=== PATIENT | female | born 2000 | race American Indian/Alaskan Native ===

== ENCOUNTER 2021-03-11 01:14 | Emergency (ER) | payer SELFPAY ==
[2021-03-11] MEDS ORDERED: ZIPRASIDONE MESYLATE 20 MG VIAL IM ONE ×2 (01:20→01:27)
[2021-03-11] MEDS ORDERED: LORazepam 2 MG/ML VIAL IM ONE (01:20)
[2021-03-11] MEDS ORDERED: LORazepam 2 MG/ML VIAL ONE (01:27)
--- NOTE | 2021-03-11 02:30 | Emergency Department Report ---
<ANSON COLE - Last Filed: 03/12/21 12:33> ED Psych HPI - General Chief Complaint: Psych Stated Complaint: MH Time Seen by Provider: 03/11/21 01:44 - Related Data Previous Rx's Medication Instructions Recorded Last Taken Type diphenhydrAMINE [Benadryl CAP] 25 mg PO Q8HR PRN #21 capsule 06/29/20 Unknown Rx Quetiapine Fumarate [SEROquel] 50 mg PO BID #60 tab 03/12/21 Unknown Rx traZODone [Desyrel] 50 mg PO QHS #30 tab 03/12/21 Unknown Rx Allergies Allergy/AdvReac Type Severity Reaction Status Date / Time No Known Allergies Allergy Verified 06/29/20 02:26 ED Past Medical Hx - Medications Home Medications: Home Medications Medication Instructions Recorded Confirmed Last Taken Type diphenhydrAMINE [Benadryl CAP] 25 mg PO Q8HR PRN #21 capsule 06/29/20 Unknown Rx Quetiapine Fumarate [SEROquel] 50 mg PO BID #60 tab 03/12/21 Unknown Rx traZODone [Desyrel] 50 mg PO QHS #30 tab 03/12/21 Unknown Rx ED Medical Decision Making - Lab Data Result diagrams: 03/11/21 03:55 03/11/21 03:55 - Medical Decision Making I was approached by the nurse for discharge after she was seen and cleared by the psychiatric nurse practitioner. The patient appears awake, oriented, calm and appropriate. At this point she appears to have a normal decision-making capacity. She has been set up with outpatient referrals/resources and has been given prescriptions for her psychiatric medications. Critical Care Time: No ED Disposition Clinical Impression: Acute psychosis Disposition: DC-01 TO HOME OR SELFCARE Is pt being admited?: No Condition: Stable Additional Instructions: Please follow-up with your psychiatrist or any of the outpatient referrals given to you by the psychiatric team. Take all medications as prescribed. Return to the emergency department with any worsening of your symptoms, thoughts of norton rming yourself or others, or with any acute distress. Prescriptions: traZODone [Desyrel] 50 mg PO QHS #30 tab Quetiapine Fumarate [SEROquel] 50 mg PO BID #60 tab Referrals: JEREMY BLANCHARD MD [Primary Care Provider] - 3-5 Days <CHRISTOPHER MENDEZ - Last Filed: 03/13/21 04:51> ED Psych HPI - General Source: family Mode of arrival: Ambulatory - History of Present Illness Initial Comments: 20-year-old female, history of schizophrenia, presents ED for mental health evaluation. Family reports patient has exhibiting bizarre behavior. She has not been taking her medications. Patient was found walking in the middle of the street by secretary of police. She was subsequently brought to the ED. Officer called patient's family who met patient in the parking lot of the ED. Family reports that patient has been back and forth between [place] and [place]. Patient is not taking her psychiatric medications. Patient is uncooperative, not answering any questions, yelling and screaming loudly. -: unknown Quality: constant Improves With: medication Context: not taking psychiatric Treatments Prior to Arrival: none ED Review of Systems ROS: Stated complaint: MH Other details as noted in HPI Comment: Unobtainable due to pts medical conditions Psychiatric: other (Exhibiting bizarre behavior) ED Past Medical Hx - Past Medical History Previous Medical History?: Yes Hx Psychiatric Treatment: Yes (schizophrenia) Additional medical history: high choles - Surgical History Past Surgical History?: No - Social History Smoking Status: Never Smoker Substance Use Type: Alcohol ED Physical Exam - General Limitations: Altered Mental Status General appearance: alert, in no apparent distress - Head Head exam: Present: atraumatic, normocephalic - Eye Eye exam: Present: normal appearance, EOMI - ENT ENT exam: Present: mucous membranes moist - Neck Neck exam: Present: normal inspection - Respiratory Respiratory exam: Absent: respiratory distress - Cardiovascular Cardiovascular Exam: Present: normal rhythm, tachycardia - GI/Abdominal GI/Abdominal exam: Absent: distended - Extremities Exam Extremities exam: Present: normal inspection - Neurological Exam Neurological exam: Present: alert - Psychiatric Psychiatric exam: Present: agitated, manic, other (patient screaming out, "In the name of Jac!") - Skin Skin exam: Present: warm, dry, intact, normal color ED Course Vital Signs 03/11/21 03/11/21 03/11/21 02:00 03:30 20:14 Temperature 98.0 F 97.9 F Pulse Rate 91 H 107 H Respiratory 18 18 16 Rate Blood Pressure 133/88 Blood Pressure 146/89 [Left] O2 Sat by Pulse 100 100 99 Oximetry 03/11/21 03/12/21 22:30 10:28 Temperature 98.1 F Pulse Rate 79 Respiratory 16 18 Rate Blood Pressure Blood Pressure 120/83 [Left] O2 Sat by Pulse 99 98 Oximetry ED Medical Decision Making - Lab Data Result diagrams: 03/11/21 03:55 03/11/21 03:55 - Medical Decision Making 20-year-old female, history of schizophrenia, presents ED for mental health evaluation. Family reports patient has exhibiting bizarre behavior. She has not been taking her medications. Patient initially presented, she was uncooperative, not answering any questions, yelling, screaming, and praying loudly. Patient required chemical restraint. Vital signs are stable. Labs show very mild acidosis, remainder is normal. We are currently awaiting for urinalysis and drug screen, however, patient is medically clear for mental health evaluation. She has been placed on a 1013. Will dispo per psych. Critical care attestation.: If time is entered above; I have spent that time in minutes in the direct care of this critically ill patient, excluding procedure time. ED Disposition Is pt being admited?: No
[2021-03-11 04:07] LABS: Basophils % (Auto) 0.2 % (0.0-1.8); Hematocrit 40.1 % (30.3-42.9); Hemoglobin 13.2 gm/dl (10.1-14.3); Lymphocytes # (Auto) 1.4 K/mm3 (1.2-5.4); Lymphocytes % (Auto) 18.3 % (13.4-35.0); Mean Corpuscular HGB Conc 33 % (30-34); Mean Corpuscular Volume 87 fl (79-97); Monocytes # (Auto) 0.7 K/mm3 (0.0-0.8); Monocytes % (Auto) 9.6 % (0.0-7.3); Platelet Count 304 K/mm3 (140-440); Red Blood Count 4.63 M/mm3 (3.65-5.03); Red Cell Distribution Width 14.9 % (13.2-15.2)
[2021-03-11 04:27] LABS: BUN/Creatinine Ratio 14; Blood Urea Nitrogen 17 mg/dL (7-17); Hemolysis Index 9
[2021-03-11] MEDS ORDERED: MAGNESIUM HYDROXIDE (MOM) ORAL LIQD UDC PO PRN (06:39)
[2021-03-11] MEDS ORDERED: ZIPRASIDONE MESYLATE 20 MG VIAL IM PRN (06:39)
[2021-03-11] MEDS ORDERED: ALUM-MAG HYDROXIDE-SIMETHICONE 200-200-20MG/5ML ORAL LIQD 30 ML PO PRN (06:39)
[2021-03-11] MEDS ORDERED: ACETAMINOPHEN 325 MG TAB PO PRN (06:39)
--- NOTE | 2021-03-11 09:30 | Consultation ---
History of Present Illness - Reason for Consult Consult date: 03/11/21 Reason for consult: psychosis - History of Present Psychiatric Illness Per ED Note: 20-year-old female, history of schizophrenia, presents ED for mental health evaluation. Family reports patient has exhibiting bizarre behavior. She has not been taking her medications. Patient was found walking in the middle of the street by police sergeant precinct. She was subsequently brought to the ED. Officer called patient's family who met patient in the parking lot of the ED. Family reports that patient has been back and forth between [place] and [place]. Patient is not taking her psychiatric medications. Patient is uncooperative, not answering any questions, yelling and screaming loudly. Per Nurse Note: Pt brought into ED by PD. Pt was found wandering in the road and family attempted to bring to ED. In parking lot, pt was yelling and becoming aggressive with family. Pt yelling about Jac, God, and demons. Pt combative with staff and PD. MD aware. Verbal orders given for sedation. Will continue to monitor. I attempted to interview 20y/o Odette Wasserman. She is standing in the barba at the door of the room, as I ask her name and if I could speak with her. The patient is irritable. She is uncooperative and paranoid. She says "where am I. I don't think you work here." The patient says "go on black woman and go back on that end." As I'm leaving her, she is following me in the room to talk with another patient. She is saying things and being disruptive. PAST PSYCHIATRIC HISTORY: Unable to assess PAST MEDICAL HISTORY: None reported Family Psychiatric History: None reported or documented SOCIAL HISTORY Unable to assess REVIEW OF SYSTEMS Unable to assess MENTAL STATUS EXAMINATION Unable to assess Assessment and Plan (1) Schizophrenia Current Visit: Yes Status: Acute (2) Non compliance with other medical treatments and regimen Current Visit: Yes Status: Acute Treatment Plan 1013 Start Seroquel 50mg po BID Start Trazodone 50mg po qhs Sitter: Defer to primary Medical: Per primary Disposition: Recommend acute psychiatric inpatient treatment Will follow. Thank you for this consult. Case staffed with Dr. Carrillo Medications and Allergies Allergies Allergy/AdvReac Type Severity Reaction Status Date / Time No Known Allergies Allergy Verified 06/29/20 02:26 Home Medications Medication Instructions Recorded Confirmed Last Taken Type diphenhydrAMINE [Benadryl CAP] 25 mg PO Q8HR PRN #21 capsule 06/29/20 Unknown Rx Active Meds: Active Medications Acetaminophen (Acetaminophen 325 Mg Tab) 650 mg PO Q4HR PRN PRN Reason: Pain MILD(1-3)/Fever >100.5/TATUM Al Hydrox/Mg Hydrox/Simethicone (Alum-Mag Hydroxide-Simethicone [phone]/5ml Oral Liqd 30 Ml) 30 ml PO Q4HR PRN PRN Reason: Indigestion Magnesium Hydroxide (Magnesium Hydroxide (Mom) Oral Liqd Udc) 30 ml PO Q12HR PRN PRN Reason: Constipation Ziprasidone (Ziprasidone Mesylate 20 Mg Vial) 10 mg IM Q12H PRN PRN Reason: Agitation Mental Status Exam - Vital signs Last Vital Signs Temp 98.0 F 03/11/21 03:30 Pulse 91 H 03/11/21 03:30 Resp 18 03/11/21 03:30 BP 146/89 03/11/21 03:30 Pulse Ox 100 03/11/21 03:30 Results Result Diagrams: 03/11/21 03:55 03/11/21 03:55 Abnormal lab results 03/11/21 03/11/21 03/11/21 Range/Units 03:55 03:55 03:55 [place] % (Auto) 9.6 H (0.0-7.3) % Seg Neutrophils % 71.9 H (40.0-70.0) % Carbon Dioxide 19 L (22-30) mmol/L Salicylates < 0.3 L (2.8-20.0) mg/dL Acetaminophen (10.0-30.0) ug/mL 03/11/21 Range/Units 03:55 [place] % (Auto) (0.0-7.3) % Seg Neutrophils % (40.0-70.0) % Carbon Dioxide (22-30) mmol/L Salicylates (2.8-20.0) mg/dL Acetaminophen 5.0 L (10.0-30.0) ug/mL All other labs normal.
[2021-03-11] MEDS: QUEtiapine 25 MG TAB PO SCH ×2 (10:42→22:40)
[2021-03-11 15:09] LABS: Bilirubin,Urine NEG (Negative); Blood,Urine NEG (Negative); Color,Urine Yellow (Yellow); Mucus,Urine 3+ /HPF
[2021-03-11 15:15] LABS: Amphetamine Screen,Urine Negative; Benzodiazepines Screen,Urine Negative; Cannabinoid Screen,Urine Negative; Cocaine Screen,Urine Negative; Methadone Screen,Urine Negative; Opiate Screen,Urine Negative
[2021-03-11] MEDS ORDERED: traZODone 50 MG TAB PO SCH (22:00)
[2021-03-12] MEDS: QUEtiapine 25 MG TAB PO SCH (10:00)
--- NOTE | 2021-03-12 11:49 | Progress Note ---
Subjective - Reason for Consult Consult date: 03/12/21 Reason for consult: psychosis - Chief Complaint Chief complaint: Per Nurse: The patient has been calm and cooperative and has denies SI/HI, and hallucinations of any kind. The patient was seen today. She is lying down, but easily arouses. She is much more calm, and cooperative than yesterday. She smiles when she sees me. When taking the patient off to herself to speak with her, she apologizes about yesterday, and leans in and touches me on my arm, "I'm so sorry sister, about talking to you like that." She says "I can't explain why I acted like that yesterday." She says "I feel so much better. I feel good, I really do." The patient says "I think it's the medication that helped." She denies SI/HI or hallucinations of any kind. She also denies any fear or feelings of endangerment. Discussed with the patient the need to comply with her treatment regimen. She verbalized agreement. REVIEW OF SYSTEMS Constitutional: Negative for weight loss ENT: Negative for stridor Respiratory: Negative for cough or hemoptysis All other systems reviewed and are negative MENTAL STATUS EXAMINATION General Appearance and Behavior: Age appropriate, good hygiene, wearing appropriate clothes, good contact, calm, cooperative. Polite Cooperation: Participating/engaged Psychomotor Behavior: Psychomotor normal Mood: "good" Affect and affective range: Congruent with stated mood. Euthymic Thought Process: goal directed Thought Content: None Speech: Normal rate, volume and rhythm Suicidal Ideation: Denies Homicidal Ideation: Denies Hallucinations: Denies Delusions: None elicited Impulse Control: Unimpaired Insight and Judgment: Limited insight and judgment Memory: Limited Attention: Normal Orientation: Alert, oriented Assessment and Plan (1) Schizophrenia Current Visit: Yes Status: Acute (2) Non compliance with other medical treatments and regimen Current Visit: Yes Status: Acute Treatment Plan d/c 1013 Seroquel 50mg po BID Trazodone 50mg po qhs Sitter: Defer to primary Medical: Per primary Disposition: Do not recommend acute psychiatric inpatient treatment. The patient understands that if SI/HI or any fear of endangerment are to arise she is to seek immediate assistance including but not limited to the crisis hotline, 911/ER She is to follow up with outpatient psych in 7 to 14 days upon discharge The emergency manager is to give her outpatient resources for CBT, med management The patient to to comply with treatment regimen Will sign off. Thank you for this consult. Case staffed with Dr. Carrillo Mental Status Exam - Vital signs Last Vital Signs Temp 97.9 F 03/11/21 20:14 Pulse 107 H 03/11/21 20:14 Resp 16 03/11/21 22:30 BP 133/88 03/11/21 20:14 Pulse Ox 99 03/11/21 22:30
[2021-03-12 12:25] VITALS: BP 120/83
== END 2021-03-12 14:45 | disposition home or self-care (01) ==
LOC: ED 01:14
DX: F23 Brief psychotic disorder (principal); Z79.899 Other long term (current) drug therapy; Z20.822 Contact with and (suspected) exposure to COVID-19
CPT/HCPCS: 36415; 80048; 80307; 81001; 84703; 85025; 96372; 99284; J2060; J3486; U0003; 80320; G0480

== ENCOUNTER 2021-11-25 03:54 | Emergency (ER) | payer SELFPAY ==
[2021-11-25] MEDS ORDERED: ACETAMINOPHEN 325 MG TAB PO ONE (05:57)
[2021-11-25] MEDS ORDERED: KETOROLAC 30 MG/1 ML INJ IM ONE (05:57)
--- NOTE | 2021-11-25 06:02 | Emergency Department Report ---
- General Chief Complaint: Upper Respiratory Infection Stated Complaint: COVID 19 SX Source: patient Mode of arrival: Ambulatory Limitations: No Limitations - History of Present Illness Initial Comments: Patient is a 21-year-old -Sammarinese female with no past medical history presented to the ED with complaint of acute onset persistent nausea and vomiting, nasal and sinus congestion, persistent dry cough, headache, body aches and pains, and lack of appetite for the last 3 days. Patient states that she tested positive for COVID-19 viral infection 24 hours ago. Patient states that she has not been able to sleep because of worsening pain and symptoms. Patient denies dizziness, syncope, chest pain, shortness of breath, fever, chills, dysuria, urinary frequency and urgency, change in vision, lightheadedness or seizures and palpitations. MD Complaint: cough, rhinorrhea, nasal congestion, sinus pain, other (Diffuse body aches and pains) -: Sudden, days(s) (3) Severity: severe Severity scale (0 -10): 7 Quality: sharp, aching Consistency: constant Improves With: nothing Worsens With: nothing Context: sick contacts Associated Symptoms: denies other symptoms, fever, chills, myalgias, headache, rhinorrhea, nasal congestion, cough, nausea, vomiting. denies: diaphoresis, sore throat, stiff neck, chest pain, abdominal pain, diarrhea, dysuria, rash, confusion, right sweats, weight loss, epistaxis, hoarseness, ear pain, other Treatments Prior to Arrival: Acetaminophen - Related Data Previous Rx's Medication Instructions Recorded Last Taken Type diphenhydrAMINE [Benadryl CAP] 25 mg PO Q8HR PRN #21 capsule 06/29/20 Unknown Rx Quetiapine Fumarate [SEROquel] 50 mg PO BID #60 tab 03/12/21 Unknown Rx traZODone [Desyrel] 50 mg PO QHS #30 tab 03/12/21 Unknown Rx Acetaminophen [Tylenol] 500 mg PO Q6HR PRN #30 tablet 11/25/21 Unknown Rx Ascorbic Acid [Vitamin C] 1,000 mg PO Q12H #30 tablet 11/25/21 Unknown Rx Benzonatate [Tessalon Perles] 100 mg PO Q8HR #30 capsule 11/25/21 Unknown Rx Cetirizine HCl [Zyrtec 10mg tab] 10 mg PO DAILY #30 tablet 11/25/21 Unknown Rx Ondansetron [Zofran Odt] 4 mg PO Q6HR PRN #20 tab.rapdis 11/25/21 Unknown Rx Allergies Allergy/AdvReac Type Severity Reaction Status Date / Time No Known Allergies Allergy Verified 06/29/20 02:26 ED Review of Systems ROS: Stated complaint: COVID 19 SX Other details as noted in HPI Constitutional: malaise, weakness. denies: chills, fever Eyes: denies: eye pain, eye discharge, vision change ENT: congestion. denies: ear pain Respiratory: cough. denies: shortness of breath, wheezing Cardiovascular: denies: chest pain, palpitations Endocrine: no symptoms reported Gastrointestinal: nausea, vomiting. denies: abdominal pain, diarrhea Genitourinary: denies: urgency, dysuria, discharge Musculoskeletal: back pain, arthralgia, myalgia. denies: joint swelling Skin: denies: rash, lesions Neurological: headache. denies: weakness, paresthesias Psychiatric: denies: anxiety, depression Hematological/Lymphatic: denies: easy bleeding, easy bruising ED Past Medical Hx - Past Medical History Previous Medical History?: Yes Hx Psychiatric Treatment: Yes (schizophrenia) Additional medical history: high choles - Surgical History Past Surgical History?: No - Social History Smoking Status: Never Smoker Substance Use Type: Alcohol - Medications Home Medications: Home Medications Medication Instructions Recorded Confirmed Last Taken Type diphenhydrAMINE [Benadryl CAP] 25 mg PO Q8HR PRN #21 capsule 06/29/20 Unknown Rx Quetiapine Fumarate [SEROquel] 50 mg PO BID #60 tab 03/12/21 Unknown Rx traZODone [Desyrel] 50 mg PO QHS #30 tab 03/12/21 Unknown Rx Acetaminophen [Tylenol] 500 mg PO Q6HR PRN #30 tablet 11/25/21 Unknown Rx Ascorbic Acid [Vitamin C] 1,000 mg PO Q12H #30 tablet 11/25/21 Unknown Rx Benzonatate [Tessalon Perles] 100 mg PO Q8HR #30 capsule 11/25/21 Unknown Rx Cetirizine HCl [Zyrtec 10mg tab] 10 mg PO DAILY #30 tablet 11/25/21 Unknown Rx Ondansetron [Zofran Odt] 4 mg PO Q6HR PRN #20 tab.rapdis 11/25/21 Unknown Rx ED Physical Exam - General Limitations: No Limitations General appearance: alert, in no apparent distress - Head Head exam: Present: atraumatic, normocephalic, normal inspection - Eye Eye exam: Present: normal appearance, PERRL, EOMI Pupils: Present: normal accommodation - ENT ENT exam: Present: normal orophraynx, mucous membranes moist, TM's normal bilaterally, normal external ear exam, other (Grossly congested nasal passages) - Neck Neck exam: Present: normal inspection, full ROM. Absent: tenderness - Respiratory Respiratory exam: Present: normal lung sounds bilaterally. Absent: respiratory distress, wheezes, rales, rhonchi, chest wall tenderness, accessory muscle use, decreased breath sounds, prolonged expiratory - Cardiovascular Cardiovascular Exam: Present: regular rate, normal rhythm, normal heart sounds. Absent: systolic murmur, diastolic murmur, rubs, gallop - GI/Abdominal GI/Abdominal exam: Present: soft, normal bowel sounds. Absent: tenderness, guarding, rebound, hyperactive bowel sounds, hypoactive bowel sounds, organomegaly - Extremities Exam Extremities exam: Present: normal inspection, full ROM, normal capillary refill - Back Exam Back exam: Present: normal inspection, full ROM. Absent: CVA tenderness (L), muscle spasm, paraspinal tenderness, vertebral tenderness - Neurological Exam Neurological exam: Present: alert, oriented X3, CN II-XII intact, normal gait, reflexes normal - Psychiatric Psychiatric exam: Present: normal affect, normal mood - Skin Skin exam: Present: warm, dry, intact, normal color. Absent: rash ED Course Vital Signs 11/25/21 03:57 Temperature 98.0 F Pulse Rate 97 H Respiratory 19 Rate Blood Pressure 150/83 O2 Sat by Pulse 96 Oximetry ED Medical Decision Making - Medical Decision Making This is a 21-year-old -Sammar[place] female with no past medical history presented to the ED with complaint of acute onset persistent nausea and vomiting, nasal and sinus congestion, persistent dry cough, headache, body aches and pains, and lack of appetite for the last 3 days. Patient states that she tested positive for COVID-19 viral infection 24 hours ago. Patient states that she has not been able to sleep because of worsening pain and symptoms. In the ED, patient is alert and oriented x3 and is not in any distress. Patient is hemodynamically stable. Patient was treated for pain in the ED and also given antiemetics. On reevaluation, patient's pain is well controlled medication. Patient will discharge home on medications and advised to continue to self quarantine at home for 10 days per the guidelines of the CDC. Patient was advised to return to the ED immediately if symptoms get worse. - Differential Diagnosis URI; COVID-19; bronchitis; pneumonitis; sinusitis; Critical care attestation.: If time is entered above; I have spent that time in minutes in the direct care of this critically ill patient, excluding procedure time. ED Disposition Clinical Impression: Upper respiratory tract infection due to COVID-19 virus, Acute bronchitis due to 2019 novel coronavirus Disposition: HOME / SELF CARE / HOMELESS Is pt being admited?: No Does the pt Need Aspirin: No Condition: Stable Instructions: Acute Bronchitis (ED), Upper Respiratory Infection, Adult, [id number], COVID-19 Frequently Asked Questions, Acute Bronchitis, Adult, [id number], Cough, Adult, [id number] Additional Instructions: Take medication with food, drink plenty of fluids and follow-up with your primary care physician after completion of your self quarantine time. Return to the ED immediately if symptoms get worse. Prescriptions: Acetaminophen [Tylenol] 500 mg PO Q6HR PRN #30 tablet PRN Reason: Pain or fever Benzonatate [Tessalon Perles] 100 mg PO Q8HR #30 capsule Ascorbic Acid [Vitamin C] 1,000 mg PO Q12H #30 tablet Ondansetron [Zofran Odt] 4 mg PO Q6HR PRN #20 tab.rapdis PRN Reason: Nausea And Vomiting Cetirizine HCl [Zyrtec 10mg tab] 10 mg PO DAILY #30 tablet Referrals: [facility] [Provider Group] - 7-10 days Time of Disposition: 06:04 Print Language: KHMER
[2021-11-25 06:50] VITALS: BP 122/73
== END 2021-11-25 06:00 | disposition home or self-care (01) ==
LOC: ED 03:54
DX: U07.1 COVID-19 (principal); J06.9 Acute upper respiratory infection, unspecified; J20.9 Acute bronchitis, unspecified
CPT/HCPCS: 96372; 99282; J1885